=== PATIENT | female | born 2000 | race Caucasian/White ===

== ENCOUNTER 2020-01-18 17:07 | Emergency (ER) | payer OTHER ==
[~2020-01-18] VITALS: Ht 172.7 cm; Wt 81.8 kg
[2020-01-18 17:28] VITALS: BP 128/85; TEMP 98
[2020-01-18 18:09] VITALS: PULSE 76
== END 2020-01-18 18:15 | disposition home or self-care (01) ==
LOC: COL.ER 17:07
DX: S93.601A Unspecified sprain of right foot, initial encounter (principal); Z88.0 Allergy status to penicillin; W10.9XXA Fall (on) (from) unspecified stairs and steps, initial encounter; X50.1XXA Overexertion from prolonged static or awkward postures, initial encounter; Y92.009 Unspecified place in unspecified non-institutional (private) residence as the place of occurrence of the external cause